=== PATIENT | male | born 1950 | race Caucasian/White ===

== ENCOUNTER → 2019-03-26 | Outpatient (CLI) | payer MEDICARE ==
[2019-03-26 11:57] LABS: Anion Gap 10 mmol/L; Blood Urea Nitrogen 15 mg/dL (9-20); Carbon Dioxide 25 mmol/L (22-30); Chloride 105 mmol/L (98-107); Sodium 140 mmol/L (137-145)
[2019-03-26 12:19] LABS: Basophils # (A) 0.1 k/uL (0-0.2); Basophils % (A) 1 %; Eosinophils # (A) 0.3 k/uL (0-0.7); Eosinophils % (A) 3 %; HCT 43.9 % (39.0-53.0); HGB 14.4 gm/dL (13.0-17.5); Lymphocytes # (A) 2.2 k/uL (1.0-4.8); Lymphocytes % (A) 28 %; MCH 28.7 pg (25.0-35.0); MCHC 32.9 g/dL (31.0-37.0); MCV 87.3 fL (80.0-100.0); Mean Platelet Volume 7.2; Monocytes # (A) 0.5 k/uL (0-1.0); Monocytes % (A) 7 %; Neutrophils # (A) 4.6 k/uL (1.3-7.7); Neutrophils % (A) 60 %; Platelet Count 292 k/uL (150-450); RBC 5.03 m/uL (4.30-5.90); RDW 14.3 % (11.5-15.5); WBC 7.8 k/uL (3.8-10.6)
== END | disposition home or self-care (01) ==
LOC: LABPAT 11:05
PROVIDERS: ATTEND Surgery
DX: Z01.812 Encounter for preprocedural laboratory examination (principal); I70.209 Unspecified atherosclerosis of native arteries of extremities, unspecified extremity
CPT/HCPCS: 36415; 80051; 82565; 84520; 85025

== ENCOUNTER 2019-04-04 13:23 | Day surgery (SDC) | payer MEDICARE ==
[2019-04-01 08:46] VITALS: BMI 28.8
[~2019-04-04 13:23] MED LIST: ALPRAZolam 0.25 MG TAB PO PRN; ASPIRIN 325 MG TAB PO STA; SODIUM CHLORIDE 0.9% 1,000 ML in EMPTY BAG 1 BAG IV ONE
[2019-04-04] MEDS ORDERED: IV FLUID CONTINUATION 1,000 ML IV ONE (14:42)
[2019-04-04] MEDS ORDERED: MORPHINE SULFATE 4MG/4ML SYRG IV ONE (14:50)
[2019-04-04] MEDS ORDERED: MIDAZOLAM (PF) 2 MG/2 ML VIAL IV ONE (14:50)
[2019-04-04] MEDS ORDERED: LIDOCAINE 1% INJ 10MG/ML (20 ML MDV) SQ ONE (14:51)
[2019-04-04] MEDS ORDERED: IOPAMIDOL-250 100ML BTL INTRAARTER ONE (15:13)
[2019-04-04] MEDS ORDERED: IBUPROFEN 800 MG TAB PO PRN (15:21)
[2019-04-04] MEDS ORDERED: hydrALAZINE HCL 20 MG/ML 1 ML VIAL IVP STA ×2 (15:26→20:20)
--- NOTE | 2019-04-04 15:47 | P.OP ---
Date of Procedure: 04/04/19 Preoperative Diagnosis: Left femoral artery occlusive disease Postoperative Diagnosis: High-grade left superficial femoral artery stenosis at the adductor canal level 60% focal stenosis left tibial peroneal trunk. Multilevel stenosis left anterior tibial artery with eventual occlusion at the mid to distal calf level Procedure(s) Performed: Abdominal aortogram. Selective catheterization left femoral artery. Left femoral angiogram 1 angioplasty left superficial femoral artery. Implants: None Anesthesia: local (With 2 mg of Versed and 2 mg of morphine sulfate for moderate conscious sedation purposes.) Surgeon: Ben Neumann Estimated Blood Loss (ml): 10 IV fluids (ml): 75 Urine output (ml): 0 Pathology: none sent Condition: stable Disposition: other (EDU) Indications for Procedure: Patient is a 68-year-old male presented to the office complaining of left calf claudication which he described as lifestyle limiting for him. No history of ischemic rest pain or nonhealing ulceration. Physical examination demonstrated the left popliteal and pedal pulses to be absent. Arterial Doppler demonstrated an STELLA of 0.66 on the left. We discussed further imaging and patient wished to proceed with angiography with hope of endovascular repair. Operative Findings: 2 cm hemodynamically severe stenosis at the adductor canal level, degree of stenosis estimated to be 80-90%. Tibial artery occlusive disease left lower externally Description of Procedure: Patient was brought to the catheterization laboratory. Both groins were sterilely prepped and draped in usual manner. The patient did receive 2 mg of Versed and 2 mg of morphine sulfate for conscious sedation purposes. 1% Xylocaine was utilized for local anesthesia tissues overlying the right femoral artery. Through this anesthetized area a multipurpose needle was utilized to cannulate the artery. Once cannulated Softip guidewire was advanced into the iliac artery. The needle was withdrawn and a 5-Irish sheath was placed. 5-Irish pigtail catheter and guidewire were advanced into the abdominal aorta. I'd were was withdrawn and abdominal aortogram was performed. Subsequently the catheter was brought down the level aortic. Furcation and the catheter was manipulated across the aortic bifurcation. Guidewire was advanced down and the femoral artery and a 5-Irish catheter was advanced into the femoral artery where a left femoral angiogram was performed. Abdominal aortogram demonstrates a poor visualization of the renals due to catheter placement however what was visualized demonstrated no significant renal artery occlusive disease. The abdominal aorta itself was essentially unremarkable. Left iliac angiography demonstrates the common external and internal iliacs to be normally patent. Left femoral angiography demonstrates a high-grade stenosis at the adductor canal level estimated to be between 80-90% in degree of severity. The distal SFA/popliteal segments were unremarkable tibial angiography demonstrates the anterior tibial artery to be stenotic in multiple levels and does occlude at the mid to distal SFA level. The tibial peroneal trunk demonstrates a focal stenosis estimated to be 60-70% in degree of severity. The visualized portions of the peroneal and posterior tibial arteries are unremarkable. The left SFA lesion was felt to be the most problematic and was felt this was amenable to endovascular repair. As such a left femoral angiogram was reperformed. Utilizing roadmapping guidewire was advanced past lesion and a 5 mm x 40 mm balloon dilation catheter was selected. This was advanced over the guidewire and utilized to balloon dilate the stenosis. Completion angiogram demonstrated complete relief of the aforementioned stenosis. With the above findings noted the catheter was withdrawn and the right femoral artery sheath was removed and the puncture closed with Angio-Seal device. Total fluoroscopy time 2.5 minutes. Total conscious sedation time 22 minutes. Total contrast volume 35 mL of Isovue 250.
--- NOTE | 2019-04-04 16:56 | IR ---
Fluoroscopy HISTORY: Pain in left leg 2.5 minutes fluoroscopy time supplied to the referring clinician. 365 intraoperative C-arm images do cument the procedure. See dictated report from vascular surgery.
[2019-04-04 20:49] VITALS: BP 157/69; PULSE 70; RESP 18; TEMP 98
[2019-04-04] MEDS ORDERED: ATORVASTATIN 10 MG TAB PO SCH (21:00)
[2019-04-05] MEDS ORDERED: ASPIRIN 81 MG PO SCH (09:00)
[2019-04-05] MEDS ORDERED: amLODIPine 10 MG TAB PO SCH (09:00)
[2019-04-05] MEDS ORDERED: MULTIVITAMINS, THERA 1 EACH TAB PO SCH (09:00)
[2019-04-05] MEDS ORDERED: CLOPIDOGREL 75 MG TAB PO SCH (09:00)
[2019-04-05] MEDS ORDERED: LISINOPRIL 20 MG TAB PO SCH (09:00)
[2019-04-05] MEDS ORDERED: LORATADINE 10 MG TAB PO SCH (09:00)
== END 2019-04-04 21:15 | disposition home or self-care (01) ==
LOC: CATHCVL 13:23 → 3SCARD 18:39 → CATHCVL 21:15
PROVIDERS: ATTEND Surgery
DX: I70.212 Atherosclerosis of native arteries of extremities with intermittent claudication, left leg (principal); Z87.891 Personal history of nicotine dependence; Z95.820 Peripheral vascular angioplasty status with implants and grafts; E78.5 Hyperlipidemia, unspecified; E78.00 Pure hypercholesterolemia, unspecified; Z85.51 Personal history of malignant neoplasm of bladder; Z85.46 Personal history of malignant neoplasm of prostate; Z90.79 Acquired absence of other genital organ(s); Z82.49 Family history of ischemic heart disease and other diseases of the circulatory system; Z79.82 Long term (current) use of aspirin; Z79.899 Other long term (current) drug therapy
CPT/HCPCS: 37224; 75625; 75710; C1894 ×2; C1760; C1725; C1769 ×3; J0360; J2001; Q9966; J2270; J2250

== ENCOUNTER 2024-10-07 10:15 | Day surgery (SDC) | payer MEDICARE ==
[2024-10-02 11:03] VITALS: BMI 28.6
[2024-10-07 10:38] VITALS: PULSE 84; TEMP 97.9
[2024-10-07] MEDS: IV FLUID CONTINUATION 1,000 ML IV ONE (10:52)
[2024-10-07] MEDS: LACTATED RINGERS 1,000 ML IV SCH (10:53)
[2024-10-07] MEDS ORDERED: PROPOFOL 10 MG/ML 20 ML VIAL IV ONE (11:03)
[2024-10-07 11:05] LABS: Glucose,Whole Blood 136 mg/dL (70-110)
--- NOTE | 2024-10-07 11:25 | P.PCN ---
Date of Procedure: 10/07/24 Preoperative Diagnosis: Screening Postoperative Diagnosis: Colon lipoma Diverticulosis Previous tattoo Procedure(s) Performed: Colonoscopy Anesthesia: MAC Surgeon: Viry Mcfadden Pathology: none sent Condition: stable Disposition: same day Indications for Procedure: 74-year-old male with previous history of polyps presents today for screening colonoscopy. Risks, benefits and alternatives were provided. All questions were answered. No family history of colon cancer. Operative Findings: Previous tattoo site at the hepatic flexure Lipoma of the colon in the ascending colon Diverticulosis Description of Procedure: The patient was brought to the endoscopy suite and placed in left lateral decubitus position and adequate sedation was achieved using conscious sedation. Digital rectal exam was performed and mild internal hemorrhoids were palpated. An endoscope was then placed in the rectum and advanced to the cecum as identified by landmarks including the appendiceal orifice and the ileocecal valve. The prep was good. The colonoscope was then slowly withdrawn, examining for any mucosal abnormalities. The cecum, ascending, transverse, descending and sigmoid colon were visualized adequately. Lipoma of the colon was noted in the ascending colon along with diverticulosis in the ascending and sigmoid colon. Previous tattoo site was noted at the hepatic flexure. No obvious polyps or masses were noted. Hemostasis was maintained. Retroflexion was performed in the rectum and mild internal hemorrhoids. Excess air was removed, the colonoscope withdrawn and the procedure terminated. The patient was then transferred to the recovery unit in stable condition. Repeat colonoscopy should be performed in 5 years.
[2024-10-07 11:54] VITALS: BP 179/77; RESP 16
== END 2024-10-07 12:21 | disposition home or self-care (01) ==
LOC: ORWHC2ENDO 10:15
PROVIDERS: ATTEND Surgery
DX: Z12.11 Encounter for screening for malignant neoplasm of colon (principal); K57.30 Diverticulosis of large intestine without perforation or abscess without bleeding; D17.79 Benign lipomatous neoplasm of other sites; K64.8 Other hemorrhoids; I10 Essential (primary) hypertension; E11.9 Type 2 diabetes mellitus without complications; I73.9 Peripheral vascular disease, unspecified; N40.0 Benign prostatic hyperplasia without lower urinary tract symptoms; Z79.899 Other long term (current) drug therapy; Z79.1 Long term (current) use of non-steroidal anti-inflammatories (NSAID)
CPT/HCPCS: J2704; G0121

== ENCOUNTER 2025-03-07 05:43 | Day surgery (SDC) | payer MEDICARE ==
[2025-03-07] MEDS: IV FLUID CONTINUATION 1,000 ML IV ONE (06:04)
[2025-03-07] MEDS: EMPTY BAG 1 BAG with SODIUM CHLORIDE 0.9% 1,000 ML IV SCH (06:19)
[2025-03-07 06:24] VITALS: RESP 16; TEMP 98.5
[2025-03-07] MEDS: ASPIRIN 325 MG TAB PO STA (06:27)
[2025-03-07 06:28] LABS: Glucose,Whole Blood 156 mg/dL (70-110)
[2025-03-07 06:31] LABS: Basophils # (A) 0.04 10*3/uL (0.00-0.10); Basophils % (A) 0.5 %; Eosinophils # (A) 0.17 10*3/uL (0.04-0.35); Eosinophils % (A) 2.2 %; HCT 42.3 % (39.6-50.0); HGB 14.8 g/dL (13.0-17.0); Lymphocytes # (A) 2.13 10*3/uL (0.90-5.00); Lymphocytes % (A) 27.2 %; MCH 29.9 pg (27.0-32.0); MCV 85.5 fL (80.0-97.0); Mean Platelet Volume 9.4 fL (9.5-12.2); Monocytes # (A) 1.13 10*3/uL (0.20-1.00); Monocytes % (A) 14.4 %; Neutrophils # (A) 4.32 10*3/uL (1.80-7.70); Neutrophils % (A) 55.1 %; Platelet Count 309 10*3/uL (140-440); RBC 4.95 10*6/uL (4.40-5.60); RDW 12.9 % (11.5-14.5); WBC 7.84 10*3/uL (4.50-10.00)
[2025-03-07 07:01] LABS: African American GFR (CKD) >90 (>60 ml/min/1.73 sqM); Anion Gap 14 mmol/L; Blood Urea Nitrogen 14 mg/dL (9-20); Calcium 10.9 mg/dL (8.4-10.2); Carbon Dioxide 25 mmol/L (22-30); Chloride 102 mmol/L (98-107); Glucose 174 mg/dL (74-99); Non-African American GFR(CKD) 85 (>60 ml/min/1.73 sqM); Potassium 3.9 mmol/L (3.5-5.1); Sodium 141 mmol/L (137-145)
[2025-03-07] MEDS: MIDAZOLAM 2 MG/2 ML VIAL IVP ONE (07:51)
[2025-03-07] MEDS: LIDOCAINE 1% INJ 10MG/ML (20 ML MDV) SQ ONE (07:51)
[2025-03-07] MEDS: fentaNYL (PF) 50 MCG/ML 2 ML AMP IVP ONE (07:51)
[2025-03-07] MEDS: IOPAMIDOL-370 100ML BTL INJ ONE ×2 (08:15)
--- NOTE | 2025-03-07 09:06 | IR ---
EXAMINATION TYPE: IR angio abdominal w runoff Intraoperative/procedural fluoroscopic services were pr ovided. CLINICAL INDICATION:Male, 74 years old with history of pvd, 4.4min fluoro; , [facility] FINDINGS: Multiple fluoroscopic images were obtained for angiogram. Total fluoroscopy time is 4.4 minutes. DAP: Not provided. Please see the operative/procedural note for further details. [facility], , 03/07/2025 9:04 AM
--- NOTE | 2025-03-07 09:06 | P.OP ---
Date of Procedure: 03/07/25 Preoperative Diagnosis: 1: Suspected aortoiliac occlusive disease. 2: Status post right iliac arterial stent placement. 3: Status post left superficial femoral artery balloon dilation. Postoperative Diagnosis: 1: 50 to 60% left common iliac artery stenosis. 2: 80 to 90% left internal iliac artery origin stenosis. 3: In-stent stenosis right iliac artery. 4: Occlusion left tibioperoneal trunk. 5: Short segment occlusion left anterior tibial artery. 6: Occlusion right anterior tibial artery. Procedure(s) Performed: 1: Abdominal aortogram with ileal femoral/popliteal and tibial runoffs. 2: Covered stent placement left common iliac artery stenosis with post stent placement balloon dilation. 3: Balloon dilation in-stent stenosis right iliac artery. 4: Percutaneous closure device (Angio-Seal) left common femoral artery puncture. Anesthesia: local (1% Xylocaine for local infiltration along with 50 mcg of fentanyl and 2 mg of Versed for moderate conscious sedation purposes.) Surgeon: Ben Neumann Estimated Blood Loss (ml): 15 Urine output (ml): 0 Pathology: none sent Condition: stable Disposition: no change Indications for Procedure: Patient is a 74-year-old male with longstanding history of peripheral vascular disease who has previously undergone right iliac artery stenting and left superficial femoral artery balloon dilation. He was quite stable for the past 6 years however recently has been experiencing increasing symptoms of bilateral hip claudication which he describes as very lifestyle limiting for him. Arterial Doppler had been performed which demonstrated findings of aortoiliac occlusive disease. Patient is now offered angiography with possible percutaneous intervention to improve the symptoms. The procedure, risk and benefits were discussed. All questions were answered to patient's satisfaction. Description of Procedure: Patient was brought to the special procedure suite. Both groins were sterilely prepped draped in the usual manner. Patient did receive 50 mcg of fentanyl and 2 mg of Versed intravenously at the start of the procedure for moderate conscious sedation purposes. 1% Xylocaine was utilized for local anesthesia tissues overlying the left femoral artery. Through this anesthetized area a multipurpose needle was utilized to cannulate the artery. Once cannulated soft-tipped guidewire was advanced into the artery. The needle was withdrawn and a 5 Arabic sheath was p laced. Guidewire and weinstein's catheter were advanced and the catheter was placed at the L1-L2 interspace. The guidewire was withdrawn. Abdominal aortogram was then performed. This was followed by imaging of the lower pelvic, femoral, popliteal and tibial vessels. Findings abdominal aortogram demonstrates the aorta to be mildly ectatic however no significant stenosis was noted. The lower lumbars are patent. Right iliac angiography demonstrates the common, external and internal iliacs to be patent. Bare-metal stent is identified in the lower one half of the common iliac and there is in-stent stenosis noted. This appears to result in approximately 50% stenosis. Right femoral angiography demonstrates the profundus and common femoral segments to be patent as is the superficial femoral artery with no significant disease noted. Right popliteal angiography demonstrates modest mid popliteal stenosis which does not appear to be hemodynamically significant. Right tibial angiography demonstrates occlusion of the anterior tibial artery approximately 5 to 6 cm distal from its origin. The tibioperoneal trunk is patent as is the peroneal and posterior tibial segments down to to the level of the ankle mortise. Left iliac angiography demonstrates approximately 60% stenosis resulting from an eccentric heavily calcified plaque of approximately 4 cm in length. The external iliac artery is patent. There is a high-grade stenosis of the origin of the left internal iliac artery. The left femoral segment including the common, profundus and proximal SFA to be widely patent. The distal segment of the SFA at the adductor canal demonstrates mild tapered stenosis. Left popliteal artery appears normally patent. Left tibial angiography demonstrates the anterior tibial artery to occlude 2 to 3 cm distal to its origin. There is a short segment tibioperoneal trunk occlusion noted just above the bifurcation into the posterior tibial and peroneal arteries. The posterior tibial and peroneal arteries are patent down to the level of the ankle mortise. Intervention: Given the patient's symptoms and the iliac artery stenosis noted bilaterally was decided to perform balloon dilation of the left common iliac artery with a covered stent. A 8 mm x 40 mm Viabahn covered stent was selected. This required conversion of the 5 Arabic sheath to a 7 Arabic sheath which was accomplished without incident. The stent was deployed and completion angiogram demonstrated proper placement however post stent placement balloon dilation was necessary. As such a 7 mm x 40 mm balloon dilation catheter was utilized to successfully balloon dilate the stented segment. Completion angiogram demonstrated near complete resolution of the stenosis. It was decided to perform balloon dilation of the in-stent stenosis of the right iliac artery stent. Guidewire and catheter were manipulated across the aortic bifurcation and guidewire was advanced into the right femoral system. The catheter was withdrawn and the 7 mm x 40 mm balloon dilation catheter was utilized to balloon dilate the this segment successfully. Completion angiogram demonstrated less than 20% residual stenosis and free flow of contrast through both stented segments. With the above findings noted catheter and guidewire were withdrawn. The puncture site was closed with an 8 Arabic Angio-Seal device. Patient tolerated procedure well and was taken to the outpatient area in satisfactory and stable condition. Total contrast volume 110 mL of Isovue 250. Total moderate conscious sedation time: 41 minutes. Total fluoroscopy time: 4.4 minutes. Plan - Discharge Summary Discharge Rx Participant: No New Discharge Prescriptions: No Action Aspirin [Adult Low Dose Aspirin EC] 81 mg PO DAILY Multivitamins, Thera [Multivitamin (formulary)] 1 tab PO DAILY Ibuprofen [Motrin] 800 mg PO DAILY PRN PRN Reason: Pain amLODIPine BESYLATE/BENAZEPRIL [Lotrel 10-20 MG] 1 cap PO BID Loratadine [Claritin] 10 mg PO DAILY PRN PRN Reason: allergies Pioglitazone [Actos] 15 mg PO DAILY [place]-3/Dha/Epa/Fish Oil [Fish Oil 1,000 mg Softgel] 1 each PO DAILY Otc Lutein 1 tab PO DAILY Discharge Medication List Aspirin [Adult Low Dose Aspirin EC] 81 mg PO DAILY 04/01/19 [History] Ibuprofen [Motrin] 800 mg PO DAILY PRN 04/01/19 [History] Loratadine [Claritin] 10 mg PO DAILY PRN 04/01/19 [History] Multivitamins, Thera [Multivitamin (formulary)] 1 tab PO DAILY 04/01/19 [History] amLODIPine BESYLATE/BENAZEPRIL [Lotrel 10-20 MG] 1 cap PO BID 04/01/19 [History] [place]-3/Dha/Epa/Fish Oil [Fish Oil 1,000 mg Softgel] 1 each PO DAILY 10/02/24 [History] Pioglitazone [Actos] 15 mg PO DAILY 10/02/24 [History] Otc Lutein 1 tab PO DAILY 03/04/25 [History]
[2025-03-07 12:56] VITALS: BP 164/76; PULSE 56
== END 2025-03-07 12:56 | disposition home or self-care (01) ==
LOC: CATHCVL 05:43
PROVIDERS: ATTEND Surgery
DX: T82.856A Stenosis of peripheral vascular stent, initial encounter (principal); I70.213 Atherosclerosis of native arteries of extremities with intermittent claudication, bilateral legs; I10 Essential (primary) hypertension; E78.00 Pure hypercholesterolemia, unspecified; Z79.82 Long term (current) use of aspirin; Z79.899 Other long term (current) drug therapy; Z87.891 Personal history of nicotine dependence; Z85.51 Personal history of malignant neoplasm of bladder; Z85.46 Personal history of malignant neoplasm of prostate
CPT/HCPCS: 37220; 37221; 75625; 75716; 80048; 85025; C1894 ×2; C1769 ×4; C1760; C1725; C1874; J2250; J2003; J3010; Q9967